=== PATIENT | female | born 1965 | race Caucasian/White ===

== ENCOUNTER 2020-10-12 15:11 | Outpatient (CLI) | payer BC ==
--- NOTE | 2020-10-12 15:48 | MMO ---
Bilateral MAMMO Bilat Screen [facility]. CLINICAL HISTORY: Patient is 55 years old and is seen for screening. The patient has no family history of breast cancer. The patient has no personal history of cancer. VIEWS: The views performed were: bilateral craniocaudal with tomosynthesis and bilateral mediolateral oblique with tomosynthesis. FILMS COMPARED: The present examination has been compared to prior imaging studies performed at [facility] on 09/08/2005, 04/18/2011, 02/12/2013 and 05/13/2015. This study has been interpreted with the assistance of computer-aided detection. MAMMOGRAM FINDINGS: There are scattered fibroglandular densities. There are no suspicious masses, suspicious calcifications, or new areas of architectural distortion. IMPRESSION: THERE IS NO MAMMOGRAPHIC EVIDENCE OF MALIGNANCY. A ROUTINE FOLLOW-UP MAMMOGRAM IN 1 YEAR IS RECOMMENDED. THE RESULTS OF THIS EXAM WERE SENT TO THE PATIENT. ACR BI-RADS Category 1 - Negative MAMMOGRAPHY NOTE: 1. A negative mammogram report should not delay a biopsy if a dominant of clinically suspicious mass is present. 2. Approximately 10% to 15% of breast cancers are not detected by mammography. 3. Adenosis and dense breasts may obscure an underlying neoplasm. Reported by: SHANKAR WYMAN MD Electonically Signed: [id number]
== END 2020-10-12 15:12 | disposition home or self-care (01) ==
LOC: BICMAMMO 15:11
PROVIDERS: ATTEND Family Medicine
DX: Z12.31 Encounter for screening mammogram for malignant neoplasm of breast (principal)
CPT/HCPCS: 77063; 77067

== ENCOUNTER 2020-11-30 08:53 | Outpatient (CLI) | payer BC ==
[2020-11-30] MEDS ORDERED: Lidocaine 1% PF 10 ML AMP ONE (09:30)
[2020-11-30] MEDS ORDERED: Iopamidol 300 61% 50 ML VIAL FS ONE (09:30)
[2020-11-30] MEDS ORDERED: EPINEPHrine 1 MG/ML AMP ONE (09:30)
[2020-11-30] MEDS ORDERED: Gadobenate Dimeglumine 529 MG/1 ML (20ML VIAL) ONE (09:30)
--- NOTE | 2020-11-30 12:57 | MRI ---
EXAM: MRI arthrogram right shoulder with intra-articular contrast PROVIDED CLINICAL HISTORY: Right shoulder pain COMPARISON: None FINDINGS: There is medial subluxation of the long head biceps tendon, partially within the substance of the ins ertional subscapularis tendon. There is low-grade partial thickness articular surface tearing involving the cranial fibers of the subscapularis suspected. The components of the rotator cuff appea r otherwise intact. There is signal alteration involving the superior labrum compatible with SLAP tear. Osteophyte format ion is seen arising from the humeral head. There is articular cartilage irregularity involving the humeral head with a small full-thickness cartilage defect involving the junction of the superior midd le thirds of the humeral head articular surface. Acromioclavicular joint osteoarthrosis is demonstrated without significant mass effect upon the subja cent supraspinatus. There is greater than physiologic subacromial subdeltoid bursal fluid, which does not contain contrast material. No focal concerning regional marrow or muscular signal abnormalit y is evident. Rotator cuff muscular volume appears preserved. IMPRESSION: 1. Low-grade partial thickness undersurface tear involving the cranial fibers of the subscapularis wi th findings suggesting associated bicipital sling injury 2. Findings compatible with SLAP tear. 3. Humeral head articular chondrosis. 4. Acromioclavicular joint osteoarthrosis.
--- NOTE | 2020-11-30 15:16 | RAD ---
Arthrogram right shoulder HISTORY: Internal derangement. FINDINGS: After explaining the procedure and answering all questions, the anterior aspect of the [facility] t shoulder was prepped and draped in usual sterile fashion. Sterile technique, buffered local anesthesia, fluoroscopic guidance, and an anterior approach were us ed to carefully advance the tip of a 22-gauge spinal needle to the joint capsule at the level of the humeral head. A total volume of 9 cc liquid mixture containing normal saline, 1% lidocaine, iodinated contrast, and small amounts of gadolinium and epinephrine were then instilled into the joint capsule under fluoroscopic control. Needle was removed. Spot images show contrast confined to the joint capsule. Jose E johnson tolerated the procedure well and was transferred to MRI in good condition for further imaging. IMPRESSION : Technically successful right shoulder arthrogram. No evidence of full-thickness rotator cuff tear. MR I is pending.
== END 2020-11-30 08:54 | disposition home or self-care (01) ==
LOC: RAD 08:53
PROVIDERS: ATTEND Orthopaedic Surgery
DX: M75.101 Unspecified rotator cuff tear or rupture of right shoulder, not specified as traumatic (principal); M19.011 Primary osteoarthritis, right shoulder
CPT/HCPCS: 23350; A9577; J0171; J2001; Q9967

== ENCOUNTER 2020-12-29 07:41 | Day surgery (SDC) | payer BC ==
[2020-12-28 11:58] VITALS: BMI 25.4
[~2020-12-29 07:41] MED LIST: XYLOCAINE 2%-EPI 1:100,000 20 ML VIAL ONE
[2020-12-29] MEDS ORDERED: Fentanyl 100 MCG/2 ML VIAL ONE (08:25)
[2020-12-29] MEDS ORDERED: Midazolam HCl 2 mg/2 ml Vial ONE (08:25)
[2020-12-29] MEDS ORDERED: Vancomycin 1 GM/200 ML BAG ONE (08:37)
[2020-12-29] MEDS ORDERED: Vancomycin 1 GM in Premix Bag 1 BAG IVPB SCH (08:45)
[2020-12-29] MEDS ORDERED: Fentanyl 100 MCG/2 ML VIAL IV PRN (09:02)
[2020-12-29] MEDS ORDERED: PROPOFOL 200 MG/20 ML VIAL ONE (09:09)
[2020-12-29] MEDS ORDERED: Ropivacaine 0.5% HCl/PF (150 MG/30 ML VIAL) ONE (09:09)
[2020-12-29] MEDS ORDERED: Lidocaine 1% PF 5 ML VIAL ONE (09:09)
[2020-12-29] MEDS ORDERED: Rocuronium Bromide 10 MG/ML (10ML VIAL) ONE (09:09)
[2020-12-29] MEDS ORDERED: Ropivacaine 2% HCl/PF (20 MG/10 ML VIAL) ONE (09:09)
[2020-12-29] MEDS ORDERED: HYDROcodone/Acetaminophen 10/325 mg Tablet PO PRN ×2 (09:15)
[2020-12-29] MEDS ORDERED: Ropivacaine 0.2% 550 ML 550 ML NERVE BLCK SCH (09:15)
[2020-12-29] MEDS ORDERED: Zolpidem Tartrate 5 MG TAB PO PRN (09:15)
[2020-12-29] MEDS ORDERED: Promethazine HCl 25 MG/ML VIAL IM PRN (09:15)
[2020-12-29] MEDS ORDERED: Ondansetron PF 4 MG/2 ML Vial IVP PRN (09:15)
[2020-12-29] MEDS ORDERED: traMADol HCl 50 MG TAB PO PRN ×2 (09:15)
[2020-12-29] MEDS ORDERED: SUGAMMADEX SODIUM 200 MG/2 ML VIAL ONE ×2 (10:27→10:49)
--- NOTE | 2020-12-29 21:37 | OP ---
DATE OF PROCEDURE: 12/29/2020 PREOPERATIVE DIAGNOSES: Right shoulder with grade 3 and 4 changes of the humeral head as well as degenerative labral tear as well as superior surface subscapularis tear with associated biceps tendon subluxation/dislocation. POSTOPERATIVE DIAGNOSES: Right shoulder with grade 3 and 4 changes of the humeral head as well as degenerative labral tear as well as superior surface subscapularis tear with associated biceps tendon subluxation/dislocation. PROCEDURES PERFORMED: 1. Right shoulder arthroscopy with debridement and shaving of multiple services to include loose articular cartilage off the humeral head, loose articular cartilage floating in the glenohumeral joint, degenerative circumferential labral tear, top portion of intra-articular subscapularis. 2. Open biceps tenodesis. CANDY MAKER HELPER: Devendra Ceron PA-C The administrative personal assistant surgeon was present throughout the open biceps tenodesis portion of the procedure to include the approach, drilling and fixation of the biceps tendon and closure of all shoulder wounds. ESTIMATED BLOOD LOSS: Minimal. COMPLICATIONS: None. ANESTHESIA: The patient had general anesthetic as well as a preoperative block. IMPLANTS: We used a 7 x 23 Bio[employer]posite Bio-Tenodesis screw. Went to recovery room in stable condition. INDICATIONS: This is a 55-year-old female, who has been having significant pain in the shoulder and really recently had a tremendous increase to the point where she was having a problem doing daily activities. She had an MRI that showed her to have on MRI, a small area of full-thickness cartilage loss in the humeral head, but a dislocated biceps tendon. At this time, it was felt she would benefit from a biceps tenodesis and debridement of any loose cartilage in the shoulder. DESCRIPTION OF PROCEDURE: After all appropriate consent forms were explained and signed, Tg was taken to the operative room and at this time was given general anesthetic. Once anesthesia was appropriate, she was rolled in the left lateral decubitus position. All bony prominences well padded. Axillary roll was placed underneath the left axilla. Beanbag was inflated to hold her in this position. The right arm was taken through full range of motion and was then suspended with standard arthroscopic fashion with 10 pounds. The right shoulder and upper extremity were prepped and draped in standard surgical fashion. Bony anatomical landmarks were drawn out. The subacromial space was infiltrated with Marcaine with epinephrine. Posterior portal was established. Scope was placed into the shoulder joint. Anterior working portal was made just off the superior aspect of the subscapularis. Diagnostic arthroscopy commenced this time. There was evident to be significant full-thickness chondral loss on the humeral head, especially the middle and posterior aspect of the humeral head. Any loose cartilage was removed at this time with the chondral tone. There were some small loose pieces of cartilage that were floating around. There were no large pieces of cartilage noted in the axillary pouch. There was a tear in the top portion of the subscapularis. This was debrided as well. The entire labrum was found to be degenerative and degenerative tissue was debrided from the labrum at this time, and we also debrided significant synovitic tissue and used the SERFAS energy to coagulate any bleeding. The rotator cuff was found to be intact. At this time, a green cannula was placed anteriorly. We then used an 18-gauge needle to maria the biceps tendon and used arthroscopic scissors to cut the biceps off its insertion. This was then debrided back to a stable base. Once this was done, then turned our attention to the subacromial space. Lateral working portal was not made. We just left in the subacromial space to make sure there was no bursal irregularities of the rotator cuff. This was found to be normal and scope was removed. At this time, biceps tenodesis portion of procedure was performed. A 15 blade was used to make incision down through skin. Bovie was used to coagulate any brisk venous bleeding. We then split the deltoid fascia sharply and used finger dissection in-line with the deltoid fibers to get underlying transverse humeral ligament. The biceps tendon was actually found to be outside of the bicipital groove anteriorly. The biceps tendon was found tagged. We then opened up the anatomic bicipital groove and pulled the tendon back into its normal anatomic position. We then sutured the tendon, cut off the intra-articular portion of the biceps tendon and removed it from the field. We placed our pin, reamed with a 7 mm reamer to a depth of 25 and placed our 7 x 23 [employer]posite Bio-Tenodesis screw in standard fashion. This was tied over top, so the screw could not back out. At this time, then thoroughly irrigated and dried. We allowed our deltoid to close upon itself. Vicryl was used to close our deltoid fascia, 2-0 Vicryl and nylon sutures were used on skin. Portals were closed with simple nylon stitch as well. At this time, the patient was awakened, taken to recovery room in stable condition. All counts were correct at the end of the case. She did receive preoperative IV antibiotics. Job ID: [id number]
== END 2020-12-29 14:34 | disposition home or self-care (01) ==
LOC: SDC 07:41
PROVIDERS: ATTEND Orthopaedic Surgery
PROC: 3E0T3BZ Introduction of Anesthetic Agent into Peripheral Nerves and Plexi, Percutaneous Approach (ICD-10-PCS; principal; 2020-12-29)
PROC: 0RBJ4ZZ Excision of Right Shoulder Joint, Percutaneous Endoscopic Approach (ICD-10-PCS; principal; 2020-12-29)
PROC: 0LS30ZZ Reposition Right Upper Arm Tendon, Open Approach (ICD-10-PCS; principal; 2020-12-29)
DX: M75.101 Unspecified rotator cuff tear or rupture of right shoulder, not specified as traumatic (principal); S43.431A Superior glenoid labrum lesion of right shoulder, initial encounter; G89.18 Other acute postprocedural pain; J45.20 Mild intermittent asthma, uncomplicated; F98.8 Other specified behavioral and emotional disorders with onset usually occurring in childhood and adolescence; Z88.0 Allergy status to penicillin
CPT/HCPCS: A4306; C1713; J2250; J2704; J2795; J3010; J3370